=== PATIENT | male | born 1935 | race Caucasian/White ===

== ENCOUNTER 2018-10-18 05:54 | Day surgery (SDC) | payer OTHER ==
--- NOTE | 2018-10-11 13:59 | RAD REPORT ---
EXAM DESCRIPTION: RAD - Chest Pa And Lat (2 Views) - 10/11/2018 1:49 pm CLINICAL HISTORY: preop Chest pain. COMPARISON: Chest Pa And Lat (2 Views) dated 06/08/2016; CHEST PA AND LAT 2 VIEW dated 09/25/2013; CH EST PA AND LAT 2 VIEW dated 07/05/2003 FINDINGS: The lungs are clear. The left hemidiaphragm is mildly elevated. The heart is upper limit o f normal in size. No fracture seen. IMPRESSION: Stable chest since 06/08/2016.
[2018-10-11 14:54] LABS: Absolute Lymphocytes (CBC) 1.3 K/uL (0.7-4.9); Absolute Monocytes 0.8 K/uL (0.1-1.3); Absolute Neutrophil 4.4 K/uL (1.8-8.0); Eosinophils % 2.5 % (0-4.4); Hematocrit 39.1 % (39.6-49.0); Lymphocytes % 19.4 % (15.3-44.8); Monocytes % 12.2 % (3.3-12.3); RBC Red Blood Cell Count 4.53 M/uL (4.33-5.43)
[2018-10-11 15:04] LABS: Protime INR 1.39
[2018-10-11 15:19] LABS: BUN Blood Urea Nitrogen 11 mg/dL (7-18); Bicarbonate 28 mmol/L (21-32); Glucose Level 101 mg/dL (74-106); Potassium 4.2 mmol/L (3.5-5.1); Sodium Level 140 mmol/L (136-145)
--- NOTE | 2018-10-12 06:29 | EKG ---
Test Date: 2018-10-11 Test Time: 13:34:49 Window Framer: DEVON MEASUREMENT RESULTS: Intervals: Rate: 69 AL: 268 QRSD: 90 QT: 394 QTc: 422 A[place]on: P: 31 AL: 268 QRS: -25 T: 12 INTERPRETIVE STATEMENTS: Sinus rhythm with 1st degree AV block Minimal voltage criteria for LVH, may be normal variant Borderline ECG Compared to ECG 06/09/2016 08:25:19 Myocardial infarct finding no longer present Electronically Signed On 10-12-18 06:29:19 DTP OPERATOR by Abdirahman Santa
--- OUTSIDE RECORDS SUMMARY | 2018-10-18 05:56 | XMS REPORT ---
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
--- OUTSIDE RECORDS SUMMARY | 2018-10-18 05:56 | XMS REPORT ---
:1935 Author Organization eClinicalWorks Care Team Providers Name Role Phone Bennett Mota Provider Role Unavailable Allergies, Adverse Reactions, Alerts Substance Reaction Event Type N.K.D.A. 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 Active Problem Tear of right rotator cuff, M75.101 Active unspecified tear extent Assessment Subacromial bursitis of right M75.51 Active shoulder joint Assessment Pain, joint, shoulder, right M25.511 Active Assessment Tear of right rotator cuff, M75.101 Active unspecified tear extent Medications Medication Code Code Instructions Start End Status Dosage System Date Date Niacin [facility] [address]-55 500 MG Orally Active 1 tablet Once a day with food Iron [facility] [address]-95 65 MG Orally Active 1 tablet Once a day Vitamin C [facility] 10324671328 500 MG Orally Active as directed CoQ-10 [facility] 77535066382 100 MG Orally Active 1 capsule Once a day with a meal Vitamin B-12 [facility] 62909062350 500 MCG Orally Active 2 tablets Once a day Vitamin D-3 ND 44845663503 5000 UNIT Active 1 tablet Orally Once a day Xarelto [facility] 79924393382 20 MG Oral Active TAKE 1/2 TO 1 TABLET EVERY DAY Citracal Plus [facility] 92092823067 - Orally Active as directed Crestor [facility] 43026497926 10 MG Orally Jul 25, Active 1 tablet Once a day 2017 Results No Known Results Summary Purpose eClinicalWorks Submission
[2018-10-18] MEDS ORDERED: Ringers Lactate 1,000 ML IV ONE ×2 (06:07→08:37)
[2018-10-18] MEDS ORDERED: CEFAZOLIN 1GM (PREMIX IV) 1 GM/50 ML BAG ONE (06:08)
[2018-10-18] MEDS ORDERED: LIDOCAINE 1% MPF 5 ML VIAL ONE (06:21)
[2018-10-18] MEDS ORDERED: MIDAZOLAM HCL 2 MG/2 ML INJ ONE (07:05)
[2018-10-18] MEDS ORDERED: PROPOFOL 200 MG/20 ML VIAL IV ONE (07:05)
[2018-10-18] MEDS ORDERED: LIDOCAINE 2% MPF 5 ML VIAL ONE (07:05)
[2018-10-18] MEDS ORDERED: FENTANYL CITR 250 MCG/5 ML ONE (07:05)
[2018-10-18] MEDS ORDERED: ROCURONIUM 50 MG/5 ML VIAL IV ONE (07:06)
[2018-10-18] MEDS ORDERED: DEXAMETHASONE 4 MG/ML VIAL ONE (07:15)
[2018-10-18] MEDS ORDERED: ROPLVACAINE HCL 40 ML ONE (07:15)
[2018-10-18] MEDS ORDERED: EPINEPHRINE/PF 1 MG/ML AMP ONE (07:19)
[2018-10-18] MEDS ORDERED: EPHEDRINE SULF 50 MG/ML VIAL ONE (08:15)
[2018-10-18] MEDS ORDERED: KETOROLAC 30 MG/ML INJ ONE (09:59)
--- NOTE | 2018-10-18 10:13 | P.BOP ---
Preoperative diagnosis: right rotator cuff tear, bicipital tenosynovitis, impingement syndrome Postoperative diagnosis: same, SLAP tear Primary procedure: right shoulder arthroscopic rotator cuff repair Secondary procedure: right shoulder arthroscopic biceps tenotomy Other procedure(s): right shoulder arthroscopic subacromial decompression Contact Center Assistant: NONE,NONE Estimated blood loss: 10 cc Specimen: none Findings: see dictation Anesthesia: General Complications: None Implants: 2- 5.5 mm arthrex corkscrew, 2- 4.75 mm arthrex swivelock Fluids & blood products: per anesthesia Transferred to: Recovery Room Condition: Good
--- NOTE | 2018-10-18 10:38 | RAD REPORT ---
EXAM DESCRIPTION: RAD - Shoulder 1 View - 10/18/2018 10:30 am CLINICAL HISTORY: Postop examination right shoulder surgery or procedure COMPARISON: None. FINDINGS: Single AP projection of the right shoulder obtained labeled postop examination. The patien t's hand overlies the inferior aspect of the right shoulder joint limiting detail. There is no dislocation of the humeral head. No gross fracture deformity is identifiable. Acromial hu meral joint space is narrowed. Degenerative change seen along the undersurface of the acromion and mi nimally at the AC joint. No AC joint separation. IMPRESSION: No dislocation, fracture or acute right shoulder joint finding.
--- NOTE | 2018-10-18 22:25 | OP ---
Date of Procedure: 10/18/2018 Surgeon: Bennett Mota MD Preoperative Diagnoses: 1.Right shoulder rotator cuff tear. 2.Right shoulder bicipital tenosynovitis. 3.Right shoulder impingement syndrome. Postoperative Diagnoses: 1.Right shoulder rotator cuff tear. 2.Right shoulder bicipital tenosynovitis. 3.Right shoulder impingement syndrome. 4.Right shoulder superior labral anterior to posterior tear. Procedures Performed: 1.Right shoulder arthroscopic rotator cuff repair. 2.Right shoulder arthroscopic biceps tenotomy with superior labral anterior to posterior tear debrid ement. 3.Right shoulder arthroscopic subacromial decompression. Anesthesia: General endotracheal. Fluids: Per Anesthesia record. Estimated Blood Loss: 10 cc. Complications: None. Implants: 1.Two 5.5 mm Arthrex corkscrews. 2.Two 4.75 mm Arthrex SwiveLocks. Indication For Procedure: Nghia is an 83-year-old male who presented to my clinic with signs, sym ptoms and MRI findings consistent with a rotator cuff tear. I discussed with the patient at length r isks and benefits associated with operative and nonoperative treatment. He expressed understanding a nd elected to proceed with operative treatment. Description Of Procedure: After informed consent was obtained, the patient was identified in the pre operative holding area and the right upper extremity was marked. The patient underwent an interscale ne block performed by Anesthesia in the PACU. He was then transferred to the operating room, transfe rred to the operating table in a supine fashion and placed under general endotracheal anesthesia. He was then placed in a beach-chair position with his extremities well padded. The right upper extremi ty was then examined. The patient had full range of motion. No instability over the right shoulder joint. The right upper extremity was then prepped and draped in usual sterile fashion. A time-out w as initiated. The correct patient and procedure were confirmed and identified. The patient did rece zhane his preoperative prophylactic antibiotics. Via the posterior portal position, a spinal needle wa s introduced in the glenohumeral joint and then shoulder joint was injected with 30 cc of normal sali ne. A posterior portal was created and the arthroscope was brought in via the posterior portal posit ion. An anterior portal was created and a cannula was placed. A diagnostic arthroscopy was performe d. The patient was noted to have some mild chondromalacia changes over the glenoid surface which wer e debrided using the arthroscopic shaver. He has overall pristine cartilage of the humeral head. He is noted to have a type 2 SLAP tear with the superior labrum elevated off the glenoid. A biceps ten otomy was then performed using meniscal biter. Arthroscopic shaver was then used again to debride th e superior labrum. Anterior, inferior and posterior labrum were found to be intact and stable to pro be. There were no loose bodies within the axillary pouch. Subscapularis was found to be intact. Ev aluated the supraspinatus. He was noted to have a full-thickness tear anteriorly. A lateral portal was created. There was pass through of the obturator through the supraspinatus indicating full-thick ness tear. Arthroscopic shaver was then used to debride the footprint on the greater tuberosity of t he supraspinatus as well as the nonviable tissue at the tear site. The arthroscope was then brought on the bottom subacromial space and a subacromial bursectomy was performed. The tear was found on th e bursal side confirming the full-thickness tear pattern. The tear was debrided using the arthroscop ic shaver and it was overall large crescentic tear and it was reducible onto the footprint of the sup raspinatus on the greater tuberosity. Two 5.5 mm anchors were placed, 1 anteriorly and 1 posteriorly which were double loaded. The sutures were then passed through the rotator cuff in an [id number] osterior fashion and were tied in a horizontal mattress fashion for total 4 points of fixation. Late ral row fixation was then performed using two 4.75 mm SwiveLock anchors in a crisscross fashion. The re was good overall reduction of the supraspinatus onto the greater tuberosity. There was some frayi ng noted of the coracoacromial ligament and the undersurface of the acromion was debrided using a rad iofrequency ablator as well as an arthroscopic shaver and bur and an acromioplasty was performed to p erform a subacromial decompression. On undersurface of the acromion, any osteophytes were debrided u sing a bur and there was no significant impingement found after completion of the decompression. The arthroscopic instruments were then removed without complication and portal sites were then irrigated with normal saline and approximated using a 2-0 Vicryl and 3-0 Monocryl. Sterile dressings were chas lied. The patient was placed in a shoulder immobilizer, awakened, and transferred to PACU in stable condition. Postoperative Plan: He will be nonweightbearing. He will follow the large rotator cuff repair min col beginning at 6 weeks postoperatively. ASHLEE/DURAN Voice ID: [id number] Report ID: [id number]
== END 2018-10-18 12:12 | disposition home or self-care (01) ==
LOC: OR 05:54
PROVIDERS: ATTEND Orthopaedic Surgery Sports Medicine
PROC: 0RNJ4ZZ Release Right Shoulder Joint, Percutaneous Endoscopic Approach (ICD-10-PCS; 2018-10-18)
PROC: 0RBJ4ZZ Excision of Right Shoulder Joint, Percutaneous Endoscopic Approach (ICD-10-PCS; 2018-10-18)
PROC: 0LQ14ZZ Repair Right Shoulder Tendon, Percutaneous Endoscopic Approach (ICD-10-PCS; principal; 2018-10-18 07:30)
DX: M75.121 Complete rotator cuff tear or rupture of right shoulder, not specified as traumatic (principal); S43.431A Superior glenoid labrum lesion of right shoulder, initial encounter; M75.21 Bicipital tendinitis, right shoulder; M75.41 Impingement syndrome of right shoulder; M75.51 Bursitis of right shoulder; Z86.711 Personal history of pulmonary embolism; Z79.01 Long term (current) use of anticoagulants; Z87.891 Personal history of nicotine dependence; Z82.49 Family history of ischemic heart disease and other diseases of the circulatory system; Z80.9 Family history of malignant neoplasm, unspecified
CPT/HCPCS: 29822; 29826; 29827; 36415; 71046; 73020; 80048; 85025; 85610; 85730; 93005; J0171; J0690; J2250; J2704; J2795; J3010

== ENCOUNTER 2018-11-09 08:10 | Emergency (ER) | payer OTHER ==
--- OUTSIDE RECORDS SUMMARY | 2018-11-09 08:12 | XMS REPORT ---
[...] cuff, M75.101 Active unspecified tear extent Assessment Complete tear of right rotator cuff M75.121 Active Assessment Bicipital tendinitis of right M75.21 Active shoulder Assessment Pain, joint, shoulder, right M25.511 Active Assessment Subacromial bursitis of right M75.51 Active shoulder joint Medications Medication Code Code Instructions Start End Status Dosage System Date Date Vitamin C [facility] 51098818950 500 MG Orally Active as directed CoQ-10 [facility] 61957929968 100 MG Orally Active 1 capsule Once a day with a meal Vitamin B-12 [facility] 24808571988 500 MCG Orally Active 2 tablets Once a day Vitamin D-3 [facility] 48380502907 5000 UNIT Active 1 tablet Orally Once a day Citracal Plus [facility] 16621999003 - Orally Active as directed Xarelto [facility] 55034486876 20 MG Oral Active TAKE 1/2 TO 1 TABLET EVERY DAY Crestor [facility] 39290942386 10 MG Orally Jul 25, Active 1 tablet Once a day 2017 Niacin [facility] [address]-66 500 MG Orally Active 1 tablet Once a day with food Iron [facility] [address]-58 65 MG Orally Active 1 tablet Once a day Results No Known Results Summary Purpose eClinicalWorks Submission
--- OUTSIDE RECORDS SUMMARY | 2018-11-09 08:12 | XMS REPORT ---
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
--- OUTSIDE RECORDS SUMMARY | 2018-11-09 08:12 | XMS REPORT ---
:1935 Author Organization eClinicalWorks Care Team Providers Name Role Phone Bennett Mota Provider Role Unavailable Allergies No Known Allergies Problems Problem Type Condition Code Onset Dates Condition Status Problem Complete tear of right rotator cuff M75.121 Active Problem Tear of right rotator cuff, M75.101 Active unspecified tear extent Medications Medication Code System Code Instructions Start End Date Status Dosage Date [facility] 01618509971 7.5-325 MG Orally Oct 06, Oct 16, Active 1 tablet every 4-6 hrs 2017 2017 as needed Results No Known Results Summary Purpose eClinicalWorks Submission
--- OUTSIDE RECORDS SUMMARY | 2018-11-09 08:12 | XMS REPORT ---
[...] End Status Dosage System Date Date Niacin [facility] [address]-03 500 MG Orally Active 1 tablet Once a day with food Iron [facility] [address]-49 65 MG Orally Active 1 tablet Once a day Vitamin C [facility] 36673293432 500 MG Orally Active as directed CoQ-10 [facility] 07718344508 100 MG Orally Active 1 capsule Once a day with a meal Vitamin B-12 [facility] 57120103892 500 MCG Orally Active 2 tablets Once a day Vitamin D-3 [place] 48349215944 5000 UNIT Active 1 tablet Orally Once a day Xarelto [facility] 39819905380 20 MG Oral Active TAKE 1/2 TO 1 TABLET EVERY DAY Citracal Plus [facility] 23113015953 - Orally Active as directed Crestor [facility] 00474420203 10 MG Orally Jul 25, Active 1 tablet Once a day 2017 Results No Known Results Summary Purpose eClinicalWorks Submission
--- NOTE | 2018-11-09 09:06 | RAD REPORT ---
EXAM DESCRIPTION: US - Extremity Venous Uni Ltd - 11/09/2018 8:58 am CLINICAL HISTORY: Left leg pain and swelling COMPARISON: None. TECHNIQUE: Real-time sonographic evaluation of the left lower extremity deep venous system was perfo rmed. FINDINGS: Normal compressibility, flow augmentation, phasic flow and spontaneous flow are identified in the left lower extremity common femoral, superficial femoral, popliteal and posterior tibial vein s. No intraluminal filling defects seen. IMPRESSION: No DVT in the left lower extremity.
--- NOTE | 2018-11-09 09:16 | ER ---
Nurse's Notes [facility] Name: Nghia Potts Age: 83 yrs Sex: Male : 1935 Arrival Date: 11/09/2018 Time: 08:11 Bed 7 Private MD: Harrison Zarate B Diagnosis: Edema, unspecified-Lower extremity edema Presentation: 11/09 08:21 Presenting complaint: Patient states: swelling to left leg, pain behind left knee since iw rotator cuff surgery on Oct 18, had US done on Oct 23 and was negative, swelling has increased, also has hx of PE, currently on xarelto. Transition of care: patient was not received from another setting of care. Onset of symptoms was October 18, 2018. Risk Assessment: Do you want to hurt yourself or someone else? Patient reports no desire to harm self or others. Initial Sepsis Screen: Does the patient meet any 2 criteria? No. Patient's initial sepsis screen is negative. Does the patient have a suspected source of infection? No. Patient's initial sepsis screen is negative. Care prior to arrival: None. 08:21 Method Of Arrival: Ambulatory 08:21 Acuity: CHARLEY 3 iw Historical: - Allergies: 08:25 NKA; iw - Home Meds: 08:25 Crestor oral oral once daily [Active]; iw - PMHx: 08:25 DVT; PE; Hyperlipidemia; iw - PSHx: 08:25 right rotator cuff; hiatal hernia; iw - Immunization history:: Adult Immunizations up to date. - Social history:: Smoking status: Patient/guardian denies using tobacco. - Ebola Screening: : Patient negative for fever greater than or equal to 101.5 degrees Fahrenheit, and additional compatible Ebola Virus Disease symptoms Patient denies exposure to infectious person Patient denies travel to an Ebola-affected area in the 21 days before illness onset No symptoms or risks identified at this time. Screenin:26 Abuse screen: Denies threats or abuse. Denies injuries from another. Nutritional ca1 screening: No deficits noted. Tuberculosis screening: No symptoms or risk factors identified. Fall Risk None identified. Assessment: 08:26 General: Appears in no apparent distress. Behavior is calm, cooperative, appropriate ca1 for age. Pain: Complains of pain in posterior aspect of left knee Pain does not radiate. Pain currently is 4 out of 10 on a pain scale. Neuro: Level of Consciousness is awake, alert, obeys commands. Cardiovascular: Heart tones S1 S2 present Patient's skin is warm and dry. Respiratory: Airway is patent Trachea midline Respiratory effort is even, unlabored, Respiratory pattern is regular, symmetrical, Breath sounds are clear bilaterally. GI: Abdomen is flat, non-distended, Bowel sounds present X 4 quads. Abd is soft and non tender X 4 quads. : No signs and/or symptoms were reported regarding the genitourinary system. EENT: No signs and/or symptoms were reported regarding the EENT system. Derm: Skin is intact, Skin is pink, warm \T\ dry. Musculoskeletal: Circulation, motion, and sensation intact. has a sling on R shoulder. 09:10 Reassessment: Patient appears in no apparent distress at this time. Patient and/or ca1 family updated on plan of care and expected duration. Pain level reassessed. Patient is alert, oriented x 3, equal unlabored respirations, skin warm/dry/pink. 10:02 Reassessment: PT D/C HOME AMBULATORY WITH FAMILY, DX WITH PERIPHERAL EDEMA. bp Vital Signs: 08:22 BP 134 / 70; Pulse 89; Resp 18; Temp 97.8; Pulse Ox 98% on R/A; Weight 67.13 kg; Height iw 5 ft. 7 in. (170.18 cm); Pain 5/10; 09:10 BP 128 / 74; Pulse 88; Resp 18; Pulse Ox 98% on R/A; ca1 08:22 Body Mass Index 23.18 (67.13 kg, 170.18 cm) iw ED Course: 08:11 Patient arrived in ED. dl4 08:11 Harrison Zarate MD is Private Physician. dl4 08:13 Krystal Castro, LILI is Primary Nurse. ca1 08:20 Ruben Huggins PA is PHCP. jr8 08:20 Josiah Randle MD is Attending Physician. jr8 08:22 Arm band placed on. iw 08:23 Triage completed. iw 08:26 Patient has correct armband on for positive identification. Placed in gown. Bed in low ca1 position. Call light in reach. Side rails up X 1. Pulse ox on. NIBP on. Warm blanket given. 08:59 US Extremity Venous Unilateral Ltd In Process Unspecified. EDMS 09:14 Harrison Zarate MD is Referral Physician. jr8 09:20 No provider procedures requiring assistance completed. Patient did not have IV access ca1 during this emergency room visit. Administered Medications: No medications were administered Outcome: 09:15 Discharge ordered by . jr8 10:02 Discharged to home ambulatory, with family. bp 10:02 Condition: stable 10:02 Discharge instructions given to patient, family, Instructed on discharge instructions, follow up and referral plans. Demonstrated understanding of instructions, follow-up care. 10:04 Patient left the ED. bp Signatures: Dispatcher [employer] EDMS aCthy Lujan, RN RN iw Ruben Huggins PA PA jr8 Willy Steward RN RN Beka Ceballos dl4 Krystal Castro RN RN ca1 Corrections: (The following items were deleted from the chart) 08:26 08:22 BP 134 / 70; Pulse 89bpm; Resp 18bpm; Pulse Ox 98% RA; Temp 97.8F; ca1 iw : 09:10 No provider procedures requiring assistance completed. ca1 ca1 : 09:10 Patient did not have IV access during this emergency room visit. ca1 ca1
--- NOTE | 2018-11-09 09:17 | EDPHYS ---
Physician Documentation [facility] Name: Nghia Potts Age: 83 yrs Sex: Male : 1935 Arrival Date: 11/09/2018 Time: 08:11 Bed 7 Private MD: Harrison Zarate B ED Physician Josiah Randle HPI: 11/09 08:32 This 83 yrs old Male presents to ER via Ambulatory with complaints of Leg jr8 Swelling. 08:32 The complaints affect the left leg. Onset: The symptoms/episode began/occurred acutely, jr8 2 week(s) ago. Modifying factors: The symptoms are alleviated by nothing. the symptoms are aggravated by nothing. Associated signs and symptoms: The patient has no apparent associated signs or symptoms. Severity of symptoms: At their worst the symptoms were mild, in the emergency department the symptoms are unchanged. It is unknown whether or not the patient has had similar symptoms in the past. The patient has not recently seen a physician. Patient had rotator cuff surgery on the october. Noticed swelling to left leg shortly after surgery. Had US done on the october with negative results. 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 Stated that the swelling still persists without any improvement . Historical: - Allergies: 08:25 NKA; iw - Home Meds: 08:25 Crestor oral oral once daily [Active]; iw - PMHx: 08:25 DVT; PE; Hyperlipidemia; iw - PSHx: 08:25 right rotator cuff; hiatal hernia; iw - Immunization history:: Adult Immunizations up to date. - Social history:: Smoking status: Patient/guardian denies using tobacco. - Ebola Screening: : Patient negative for fever greater than or equal to 101.5 degrees Fahrenheit, and additional compatible Ebola Virus Disease symptoms Patient denies exposure to infectious person Patient denies travel to an Ebola-affected area in the 21 days before illness onset No symptoms or risks identified at this time. ROS: 08:32 Eyes: Negative for injury, pain, redness, and discharge, ENT: Negative for injury, jr8 pain, and discharge, Neck: Negative for injury, pain, and swelling, Cardiovascular: Negative for chest pain or palpitations Respiratory: Negative for shortness of breath, cough, wheezing, and pleuritic chest pain, Abdomen/GI: Negative for abdominal pain, nausea, vomiting, diarrhea, and constipation, Back: Negative for injury and pain, Skin: Negative for injury, rash, and discoloration, Neuro: Negative for headache, weakness, numbness, tingling, and seizure. 08:32 MS/extremity: Positive for swelling, of the left leg. Exam: 08:32 Eyes: Pupils equal round and reactive to light, extra-ocular motions intact. Lids and jr8 lashes normal. Conjunctiva and sclera are non-icteric and not injected. Cornea within normal limits. Periorbital areas with no swelling, redness, or edema. ENT: Nares patent. No nasal discharge, no septal abnormalities noted. Tympanic membranes are normal and external auditory canals are clear. Oropharynx with no redness, swelling, or masses, exudates, or evidence of obstruction, uvula midline. Mucous membranes moist. Neck: Trachea midline, no thyromegaly or masses palpated, and no cervical lymphadenopathy. Supple, full range of motion without nuchal rigidity, or vertebral point tenderness. No Meningismus. Respiratory: Lungs have equal breath sounds bilaterally, clear to auscultation and percussion. No rales, rhonchi or wheezes noted. No increased work of breathing, no retractions or nasal flaring. Abdomen/GI: Soft, non-tender, with normal bowel sounds. No distension or tympany. No guarding or rebound. No evidence of tenderness throughout. Back: No spinal tenderness. No costovertebral tenderness. Full range of motion. Skin: Warm, dry with normal turgor. Normal color with no rashes, no lesions, and no evidence of cellulitis. Neuro: Awake and alert, GCS 15, oriented to person, place, time, and situation. Cranial nerves II-XII grossly intact. Motor strength 5/5 in all extremities. Sensory grossly intact. Cerebellar exam normal. Normal gait. 08:32 Cardiovascular: Rate: normal, Rhythm: regular, Pulses: Pulses are 2+ in right radial artery, right dorsalis pedis artery, left radial artery and left dorsalis pedis artery. Heart sounds: normal, normal S1and S2, no S3 or S4, no murmur, no rub, no gallop, Edema: 2+ edema to level of left midcalf, left ankle and left foot, JVD: is not appreciated. 08:32 Musculoskeletal/extremity: Extremities: grossly normal except: noted in the left leg: Patient has mild swelling/edema to left lower leg from foot to knee. No tenderness to palpation. No erythema/cellulitis noted, ROM: no acute changes, intact in all extremities, Pulses: noted to be 2+ in the right radial artery, right dorsalis pedis artery, left radial artery and left dorsalis pedis artery, Perfusion: the patient is normally perfused throughout, pink, warm, noted to have brisk capillary refill, Perfusion: the extremity is normally perfused throughout, pink, warm, with brisk capillary refill, Sensation intact. Weight bearing: able to fully bear weight, without difficulty, DVT Exam: no tenderness, negative Homans' sign noted on exam, no appreciated bluish discoloration, no erythema, no increased warmth, swelling, that is moderate, of the left leg, Calves: are not equal in size: left is larger than right. Vital Signs: 08:22 BP 134 / 70; Pulse 89; Resp 18; Temp 97.8; Pulse Ox 98% on R/A; Weight 67.13 kg; Height iw 5 ft. 7 in. (170.18 cm); Pain 5/10; 09:10 BP 128 / 74; Pulse 88; Resp 18; Pulse Ox 98% on R/A; ca1 08:22 Body Mass Index 23.18 (67.13 kg, 170.18 cm) iw MDM: 08:20 Patient medically screened. jr8 08:32 Differential diagnosis: Cellulitis, arterial insufficiency, venous insufficiency, jr8 lymphedema, DVT, medication induced edema, bennett cyst. 09:13 Data reviewed: vital signs, nurses notes, radiologic studies, ultrasound, and as a jr8 result, I will discharge patient. Data interpreted: Pulse oximetry: on room air is 98 %. Interpretation: normal. Counseling: I had a detailed discussion with the patient and/or guardian regarding: the historical points, exam findings, and any diagnostic results supporting the discharge/admit diagnosis, radiology results, the need for outpatient follow up, a family practitioner, to return to the emergency department if symptoms worsen or persist or if there are any questions or concerns that arise at home. 09:13 ED course: Recommended compression stocking for left leg for now. Needs f/u with PCP jr8 for further determination of leg swelling. No emergent identifiable cause found. 11/09 08:32 Order name: US Extremity Venous Unilateral Ltd; Complete Time: 09:13 jr8 Administered Medications: No medications were administered Disposition: 11/09/18 09:15 Discharged to Home. Impression: Edema, unspecified - Lower extremity edema. - Condition is Stable. - Discharge Instructions: Peripheral Edema. - Medication Reconciliation Form, Thank You Letter, Antibiotic Education, Prescription Opioid Use form. - Follow up: Harrison Zarate MD; When: 1 - 2 days; Reason: Recheck today's complaints, Continuance of care, Re-evaluation by your physician. - Problem is new. - Symptoms are unchanged. Addendum: 11/16/2018 08:49 Co-signature as Attending Physician, Josiah Randle MD I agree with the assessment and k dr plan of care. Signatures: Dispatcher [employer] EDMS Josiah Randle MD MD kdr Cathy Lujan, LILI RN iw Ruben Huggins PA PA jr8 Willy Steward RN RN bp Corrections: (The following items were deleted from the chart) 11/09 10:04 09:15 11/09/2018 09:15 Discharged to Home. Impression: Edema, unspecified - Lower bp extremity edema. Condition is Stable. Forms are Medication Reconciliation Form, Thank You Letter, Antibiotic Education, Prescription Opioid Use. Follow up: Harrison Zarate; When: 1 - 2 days; Reason: Recheck today's complaints, Continuance of care, Re-evaluation by your physician. Problem is new. Symptoms are unchanged. jr8
== END 2018-11-09 10:04 | disposition home or self-care (01) ==
LOC: ER 08:10
DX: R60.0 Localized edema (principal); Z86.718 Personal history of other venous thrombosis and embolism; Z86.711 Personal history of pulmonary embolism; E78.5 Hyperlipidemia, unspecified
CPT/HCPCS: 93971; 99283

== ENCOUNTER 2020-08-13 06:00 | Inpatient (IN) | payer OTHER ==
--- NOTE | 2020-08-07 11:13 | RAD REPORT ---
EXAM DESCRIPTION: Bryan Ken (2 Views)08/07/2020 11:08 am CLINICAL HISTORY: Preop for surgery COMPARISON: 2018 FINDINGS: Left hemidiaphragm remains elevated. The lungs appear clear of acute infiltrate. The heart is mildly enlarged IMPRESSION: No acute abnormalities displayed
[2020-08-07 11:31] LABS: Potassium 4.2 mmol/L (3.5-5.1)
[2020-08-07 11:34] LABS: Absolute Lymphocytes (CBC) 1.1 K/uL (0.7-4.9); Basophils % 0.9 % (0-1.3); Hematocrit 44.6 % (39.6-49.0); Lymphocytes % 18.2 % (15.3-44.8); MPV 8.6 fL (7.6-11.3); RBC Red Blood Cell Count 4.76 M/uL (4.33-5.43)
[2020-08-07 11:37] LABS: Protime INR 1.2
--- OUTSIDE RECORDS SUMMARY | 2020-08-13 06:09 | XMS REPORT | Continuity of Care Document ---
:1935 Author Organization [facility] t Address [address] [place] [address] Care Team Providers Name Role Phone Unavailable Unavailable Unavailable Problems This patient has no known problems. Allergies, Adverse Reactions, Alerts This patient has no known allergies or adverse reactions. Medications Ordered Filled Start Stop Current Ordering Indication Dosage Frequency Signature Comments Components Source Medication Medication Date Date Medication? Clinician (SIG) Name Name Rishi Blackwell 0 Yes Bennett [address] [facility] Crestor Crestmd 2017-10 Yes Bennett [address] [facility] Niacin Niacin Yes Bennett [address] [facility] with food [facility] Vitamin Vitamin Yes Bennett [address] B-12 B-12 [facility] Vitamin D-3 Vitamin D-3 Yes Bennett [address] [facility] CoQ-10 CoQ-10 Yes Bennett [address] [facility] with a [facility] Citracal Citracal Yes Bennett as [facility] Plus Plus [facility] directed [facility] Vitamin C Vitamin C Yes Bennett as [facility] Xarelto Xarelto Yes Bennett TAKE 1/[address] [facility] TO 1 [facility] TABLET [facility] EVERY DAY l [facility] ent [facility] Plaquenil Plaquenil Yes Bennett not [facility] defined [facility] Iron Iron Yes Bennett [address] [facility] Methotrexat Methotrexat Yes Bennett not [facility] e e [facility]ota defined [facility] Hydroxychlo Hydroxychlo Yes Bennett not [facility] roquine roquine Mota defined [facility] - Sulfate Sulfate [facility] Rosuvastati Rosuvastati Yes Bennett not [facility] n Calcium n Calcium Mota defined Marilou k[facility] Folic Acid Folic Acid Yes Bennett not [facility] defined [facility] Procedures This patient has no known procedures. Encounters Start End Encounter Admission Attending Care Care Encounter Source Date/Time Date/Time Type Type Clinicians Facility Department ID 2020-08-07 2020-08-07 Outpatient [facility] [id number] [facility] 2020-06-27 2020-06-27 Outpatient [facility] [id number] [facility] 00:00:00 00:00:00 [facility] 2020-06-17 2020-06-17 [facility] [id number] [address] 14[facility] 14[facility] 2020-05-26 2020-05-26 [facility] [id number] 08[facility]21:00 08:21:00 [facility] 2020-05-06 2020-05-06 [facility] [id number] 08[facility]00[facility]00 08:00:00 [facility] 2020-03-25 2020-03-25 [facility] [id number] 10:00[facility]00 10:00:00 [facility] 2020-03-20 2020-03-20 [facility] [id number] 08:00[facility]00 08:00:00 [facility] 2020-03-11 2020-03-11 [facility] [id number] 08:00:00 08:00:00 [facility] 2020-02-14 2020-02-14 [facility] [id number] 08:30:00 08:30:00 [facility] 2019-12-03 2019-12-03 [facility] [id number] 08:00:00 08:00:00 [facility] 2019-02-26 2019-02-26 [facility] [id number] 08:00[facility]00 08:00:00 [facility] 2019-01-15 2019-01-15 [facility] [id number] 08:00:00 08:00:00 [facility] 2018-12-04 2018-12-04 [facility] [id number] 09:30:00 09:30:00 [facility] 2018-11-08 2018-11-08 [facility] [id number] 11:13:00 11:13:00 [facility] 2018-11-07 2018-11-07 [facility] [id number] 13:30:00 13:30:00 [facility] 2018-10-23 2018-10-23 [facility] [id number] 14:00:00 14:00:00 [facility] 2018-10-23 2018-10-23 [facility] [id number] 09:00:00 09:00:00 [facility] 2018-10-16 2018-10-16 [facility] [id number] 12:03:00 12:03:00 [facility] 2018-10-16 2018-10-16 [facility] [id number] 09:02:00 09:02:00 [facility] 2018-10-06 2018-10-06 [facility] [id number] 09:00:00 09:00:00 [facility] 2018-10-02 2018-10-02 [facility] [id number] 11:00:00 11:00:00 [facility] 2018-07-26 2018-07-26 [facility] [id number] 09:05:00 09:05:00 [facility] 2018-07-25 2018-07-25 [facility] [id number] 08:30:00 08:30:00 [facility] Results This patient has no known results.
--- OUTSIDE RECORDS SUMMARY | 2020-08-13 06:09 | XMS REPORT ---
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 Problem Primary osteoarthritis of left knee M17.12 Active Assessment Primary osteoarthritis of left knee M17.12 Active Medications Medication Code Code Instructions Start End Status Dosage System Date Date CoQ-10 [facility] 85746539760 100 MG Orally Active 1 caps ule Once a day with a meal Niacin [facility] [address]-43 500 MG Orally Active 1 ta blet Once a day with food Iron [facility] [address]-38 65 MG Orally Active 1 tab let Once a day Citracal Plus [facility] 21675045286 - Orally Active as directed Xarelto [facility] 57669382599 20 MG Oral Active TAKE 1/2 TO 1 TABLET EVERY DAY Rosuvastatin Calcium [facility] [address]-23 Activ e not defined Vitamin B-12 [facility] 44961317205 500 MCG Orally Active 2 tablets Once a day Vitamin D-3 [facility] 02385302138 5000 UNIT Active 1 tabl et Orally Once a day Vitamin C [facility] 41405198753 500 MG Orally Active as directed Hydroxychloroquine [facility] [address]-91 Active not Sulfate defined Plaquenil [facility] [address]-02 Active not defined Valium [facility] 66376718051 5 MG Orally 30 Sept Active 1 TAB LET MIN PRIOR TO 2019 Methotrexate [facility] [address]-08 Active not defined Folic Acid [facility] [address]-61 Active not defined Crestor [facility] 69264319436 10 MG Orally Jul 25, Active 1 table t Once a day 2017 Results No Known Results Summary Purpose [employer] Submission
--- OUTSIDE RECORDS SUMMARY | 2020-08-13 06:09 | XMS REPORT ---
:1935 Author Organization [facility] Address [address] [place] [address] Care Team Providers Name Role Phone Bennett Mota Unavailable [phone] PROBLEMS Type Condition ICD9-CM [id number] Onset Condition SNOMED Code Notes Code Code Dates Status Problem Tear of right M75.101 Active 386011648 rotator cuff, unspecified tear extent Problem Primary M17.12 Active 093230856431548 osteoarthritis of left knee Problem Complete tear of M75.121 Active 950168283 right rotator cuff ALLERGIES No Known Allergies ENCOUNTERS from 1935 to 2020-08-11 Encounter Location Date Provider Diagnosis [facility] [address] Jul, Bennett starks osteoarthritis [facility] 1 [place] of left knee M17.12 and [facility], [place] Pain, joint, kn ee, left [address] M25.562 IMMUNIZATIONS Vaccine Route Administration Date Status Visco-3 Unknown March 25, 2020 Administered Visco-3 Unknown March 20, 2020 Administered Visco-3 Unknown March 11, 2020 Administered Bupivicaine [place] Unknown March 11, 2020 Administered Bupivicaine [place] Unknown Dec 03, 2019 Administered Betamethasone Sodium Phosphate Unknown Jul 25, 2018 A dministered LIDOCAINE HCL 10MG/ML Unknown Jul 25, 2018 Administer ed Kenalog (Triamcinolone) Unknown March 11, 2020 Administ ered Kenalog (Triamcinolone) Unknown Dec 03, 2019 Administ ered SOCIAL HISTORY Tobacco Use: Social History Observation Description Date Details (start date - stop date) Never Smoker Sex Assigned At : Social History Observation Description Sex Assigned At Unknown Alcohol Screen Question Answer Notes Did you have a drink containing alcohol in the past year? No Points 0 Interpretation Negative Tobacco Use/Smoking Question Answer Notes Are you a never smoker Additional Findings: Tobacco Non-User Current non-smoker REASON FOR REFERRAL No Information VITAL SIGNS Height 67 in Jul, Weight 161 lbs Jul, Temperature 97.5 degrees Fahrenheit Jul, BMI 25.21 kg/m2 Jul, Blood pressure systolic 126 mm Hg Jul, Blood pressure diastolic 74 mm Hg Jul, MEDICATIONS Medication SIG (Take, Route, Start Date End Date Status Frequency, Duration) Vitamin C 500 MG as directed Orally Activ e Hydroxychloroquine Sulfate A ctive Methotrexate Active Xarelto 20 MG TAKE 1/2 TO 1 TABLET Active EVERY DAY Oral for 90 CoQ-10 100 MG 1 capsule with a meal Activ e Orally Once a day for 30 day(s) [place] 7.5-325 MG 1 tablet as needed Orally Jul,Aug, 0 Active every 6 hrs for 30 days Iron 65 MG 1 tablet Orally Once a Activ e day for 30 day(s) Crestor 10 MG 1 tablet Orally Once a Jul, Acti ve day for 30 day(s) Vitamin D-3 5000 UNIT 1 tablet Orally Once a Active day for 30 day(s) Citracal Plus - as directed Orally Active Vitamin B-12 500 MCG 2 tablets Orally Once a Active day for 30 day(s) Niacin 500 MG 1 tablet with food Orally A ctive Once a day for 30 day(s) Folic Acid Active Xarelto 10 MG 1 tablet Orally Once a Jul, Acti ve day for 11 days PROCEDURES No Information RESULTS No Results REASON FOR VISIT f/u left knee pain- discuss TKA set for 08/13/2020 MEDICAL (GENERAL) HISTORY Type Description Date Medical History taking blood thinners Medical History high cholesterol Medical History History DVT Medical History History Hital hernia Medical History History embolitis Surgical History hernia-no metal Surgical History Right RCR 10/18/2018 Hospitalization History ICU-leg swelling, DVT 2019 Goals Section No Information Health Concerns No Information MEDICAL EQUIPMENT No Information MENTAL STATUS No Information FUNCTIONAL STATUS No Information ASSESSMENTS Encounter Date Diagnosis Notes Jul, Pain, joint, knee, left (ICD-10 - M25.56 2) Jul, Primary osteoarthritis of left knee (ICD -10 - M17.12) PLAN OF TREATMENT Medication Medication Name Sig Start Date Stop Date Xarelto 10 MG 1 tablet Orally Once a day for 11 days Jul, 2 020 [place] 7.5-325 MG 1 tablet as needed Orally every 6 hrs for 26 Oc 2019Aug, 30 days Treatment Notes Assessment Notes Clinical Notes Primary osteoarthritis of left knee -patient has failed cons ervative treatment measures-given continued pain and difficulty with ADLs, recommend left TKA-Risks and benefits associated with the procedure were discussed with the patient and his family at length, and he expressed understanding and elected to proceed with operative treatment.-We will proceed with the left total knee on 08/13/2020. Next Appt Details 2 Weeks after surgery Reason: Provider Name:Bennett Mota 2020-08-28 0 9:00:00 AM, [address], [place], [address], Insurance Providers Payer Name Payer Payer Insured Patient Coverage Coverage End Address Phone Name Relationship to Start Date Lenard e Insured [employer] [phone] Vanessa Rojas self MEDICARE O [id number] [facility] [id number]
--- OUTSIDE RECORDS SUMMARY | 2020-08-13 06:09 | XMS REPORT ---
[...] osteoarthritis of left knee M17.12 Active Medications No Known Medications Results No Known Results Summary Purpose [employer]ClinicalWorks Submission
--- OUTSIDE RECORDS SUMMARY | 2020-08-13 06:09 | XMS REPORT ---
:1935 Author Organization [facility] Address [address] [place] [address] Care Team Providers Name Role Phone Bennett Mota Unavailable [phone] PROBLEMS Type Condition ICD9-CM [id number] Onset Condition SNOMED Code Notes Code Code Dates Status Problem Tear of right M75.101 Active 979298132 rotator cuff, unspecified tear extent Problem Primary M17.12 Active 412902159323743 osteoarthritis of left knee Problem Complete tear of M75.121 Active 946324515 right rotator cuff ALLERGIES No Information ENCOUNTERS from 1935 to 2020-07-09 Encounter Location Date Provider Diagnosis [facility] [address] [facility] [address] Jun, [place] [address] IMMUNIZATIONS No Information SOCIAL HISTORY Sex Assigned At : Social History Observation Description Sex Assigned At Unknown REASON FOR REFERRAL No Information VITAL SIGNS No information MEDICATIONS No Information PROCEDURES No Information RESULTS No Results REASON FOR VISIT clearances MEDICAL (GENERAL) HISTORY Type Description Date Medical [...] No Information FUNCTIONAL STATUS No Information ASSESSMENTS No Information PLAN OF TREATMENT No Information
[2020-08-13] MEDS ORDERED: Ringers Lactate 1,000 ML IV ONE ×2 (06:26→07:12)
[2020-08-13] MEDS ORDERED: propofoL 200 MG/20 ML VIAL IV ONE ×5 (06:38→10:14)
[2020-08-13] MEDS ORDERED: FENTANYL CITR 100 MCG/2 ML ONE (06:38)
[2020-08-13] MEDS ORDERED: LIDOCAINE 2% MPF 5 ML VIAL ONE ×2 (06:38→06:46)
[2020-08-13] MEDS ORDERED: KETOROLAC 30 MG/ML INJ ONE (06:38)
[2020-08-13] MEDS ORDERED: MIDAZOLAM HCL 2 MG/2 ML INJ ONE (06:38)
[2020-08-13] MEDS ORDERED: ROCURONIUM 50 MG/5 ML VIAL IV ONE (06:39)
[2020-08-13] MEDS ORDERED: KETAMINE HCL 500 MG/5 ML VIAL ONE (06:39)
[2020-08-13] MEDS ORDERED: ONDANSETRON 4 MG/2 ML VIAL ONE (06:39)
[2020-08-13] MEDS ORDERED: dexAMETHasone 4 MG/ML VIAL ONE (06:46)
[2020-08-13] MEDS ORDERED: NS 0.9% VIAL 20 ML ONE (06:46)
[2020-08-13] MEDS ORDERED: BUPIVACAINE 0.25% PF 10 ML VIAL ONE (06:46)
[2020-08-13] MEDS ORDERED: BUPIVACAINE 0.25% PF 30 ML VIAL ONE (07:12)
[2020-08-13] MEDS: CEFAZOLIN/SWI 1gm 1 GM/10 ML SYR ONE ×2 (07:24→07:44)
[2020-08-13] MEDS ORDERED: BUPIVACA 0.25%/EPI 0.0005% MDV 50 ML VIAL ONE (07:31)
[2020-08-13] MEDS ORDERED: TRANEXAMIC ACID 1,000 MG in NA CHLORIDE 0.9% 50 ML IV SCH (08:00)
[2020-08-13] MEDS ORDERED: HYDROMORPHONE HCL 1 MG/ML INJ ONE (08:38)
[2020-08-13] MEDS ORDERED: ESMOLOL HCL 10 ML IV ONE (10:25)
--- NOTE | 2020-08-13 10:36 | P.BOP ---
Preoperative diagnosis: left knee osteoarthritis Postoperative diagnosis: same Primary procedure: left total knee arthroplasty Secondary procedure: none Rn First Assistant: NONE,NONE Estimated blood loss: 20 cc Specimen: left knee bone remnants Findings: see dictation Anesthesia: General Complications: None Implants: Biomet Ashley Persona 11 STD CR femur, G tibia, 35 patella 10 mm CR poly Fluids & blood products: per anesthesia record; TT: 90 mins @ 300 mmHg Transferred to: Recovery Room Condition: Good
[2020-08-13] MEDS ORDERED: DOCUSATE NA 100 MG CAP PO PRN (10:39)
[2020-08-13] MEDS ORDERED: ONDANSETRON 4 MG/2 ML VIAL IV PRN (10:39)
[2020-08-13] MEDS ORDERED: MORPHINE 2 MG/ML SYR IV PRN (10:39)
[2020-08-13 11:29] LABS: Hematocrit 44.5 % (39.6-49.0)
[2020-08-13 11:48] VITALS: BMI 25.4
--- NOTE | 2020-08-13 12:11 | RAD REPORT ---
EXAM DESCRIPTION: RAD - Knee Left 2 View - 08/13/2020 11:12 am CLINICAL HISTORY: Post Op COMPARISON: No comparisons FINDINGS: A left total knee arthroplasty has been performed. Air is present in the joint with skin s taples noted. No unexpected postoperative finding.
--- NOTE | 2020-08-13 12:57 | P.CNS ---
Date of Consult: 08/13/20 Reason for consult: Medical management HPI: 84yo male, PMH: Prior DVT/PE, RA, HLD, who is now s/p left total knee arthroplasty for left knee osteoarthritis by Dr. Mota. I am consulted for medical management in the postoperative period. The patient reports he has been in his usual state of health, no recent illness. He reports feeling well after surgery, currently without complaints. Patient reports his last PE diagnosed 3 years ago common occurred during perioperative period when he was holding his Coumadin. He denies any cardiac history. He denies any fevers/chills, no nausea/vomiting, no abdominal pain, no chest pain, no shortness of breath, no recent rashes or lesions, no change in urinary/bowel habits recently. 10 point ROS otherwise negative. Social Hx: former smoker, quit > 30yrs ago occasional alcohol drink lives at home with Family Hx: Mother-cancer Father-heart disease (CHF, [place]) Brothers - 1 with HTN, 1 with CHF, 1 with dementia, 1 with 2 MIs Medical Hx: h/o DVT, PE, currently on Xarelto Rheumatoid arthritis Hyperlipidemia Surgical Hx: Left cataract repair Right rotator cuff repair Hiatal hernia repair Inguinal hernia repair Left knee replacement Medication list reviewed - in chart. Lab work from 08/07 reviewed Physical exam Gen: NAD, AAOx3 HEENT: normal conjunctiva, sclera anicteric CV: RRR, no m/r/g Pulm: CTAB, no w/r/r Abd: soft, NTND Ext: LLE: surgical dressing in place, L toes warm,well-perfused, wiggles toes. RLE: SCD in place, no edema A/P L knee osteoarthritis now s/o L TKA (08/13/20) Prior DVT/PE, currently on Xarelto Rheumatoid arthritis HLD doing well postoperatively, pain control per ortho encourage incentive spirometry pt with prior PE while off coumadin for hernia repair, will restart Xarelto tomorrow per ortho no recent RA flare, seems stable, continue home medications continue home statin VTE prophylaxis: SCDs, restart xarelto in AM Code: Full Dispo: plans to go home with home health/PT on discharge
[2020-08-13] MEDS: HYDROCODONE/APAP 7.5/325 MG TAB PO PRN (16:59)
[2020-08-13] MEDS: CEFAZOLIN/SWI 1gm 1 GM/10 ML SYR IV SCH (16:59)
[2020-08-13] MEDS ORDERED: CEFAZOLIN/NS 1gm 1 GM/50 ML BAG IVPB SCH (17:00)
--- NOTE | 2020-08-13 21:56 | P.OP ---
Preoperative diagnosis: left knee osteoarthritis Postoperative diagnosis: same Primary procedure: left total knee arthroplasty Secondary procedure: none Anesthesia: general LMA Estimated blood loss: 20 cc Specimen: left knee bone remnants Findings: see dictation Operative Technique: Indication For Procedure: Mirella is an 84-year-old male presented to my clinic with signs, symptoms and x-ray findings consistent with a severe left knee osteoarthritis. I discussed with the patient at length risks and benefits associated with operative and nonoperative treatment. He had failed conservative treatment measures including corticosteroid and viscosupplementation injections. He expressed understanding and elected to proceed with operative treatment. Description Of Procedure: After informed consent was obtained, the patient was identified in the preoperative holding area. The left lower extremity was marked. The patient was then taken to the PACU where he underwent a left lower extremity adductor canal block performed by Anesthesia. He was then taken to the operating room, transferred to the operating table in supine fashion, and p laced under general anesthesia. His left lower extremity was then prepped anddraped in usual sterile fashion. A time-out was initiated. The correct patient and procedure were confirmed and identified. The patient did receive his preoperative prophylactic antibiotics. The left lower extremity was then exsanguinated and tourniquet was inflated to 300 mmHg. Approximately 15 cm longitudinal incision was made centered over the anterior aspect of the right knee. Dissection was then taken to the extensor mechanism and a medial parapatellar arthrotomy was performed. The patella was everted and dislocated laterally and the knee was flexed in the fat pad. Medial lateral meniscus and ACL were all excised exposing the distal femur. Excess hypertrophic synovium was also excised within the suprapatellar pouch. The patient had MRIs of his right knee and cutting block was then placed over the distal femur and pins were then placed. The distal femoral cutting block was then placed over the pins. Knee joint was then used to ensure proper depth cut and the distal femur was then cut. The chamfer cutting guide was then placed over the distal end of the femur. Anterior, posterior cuts as well as anterior and posterior chamfer cuts were then made again confirming proper depth of the cut using an Jamarcus wing. Excess bone remnants were then sent to Pathology for further evaluation. Next, attention was taken to the proximal tibia. A tibial jig and tibial cutting block was then placed on proximal aspect of the right tibia and locked into position. Pins were then placed and alignment guide was then used to confirm proper alignment of the cut and then coronal and sagittal planes. Once this was confirmed, the cutting jig was placed over the pins and the proximal tibia was cut. Sizing trays were then selected and size 10 mm spacer was used and there was good overall balance in flexion and extension. Next, the trial implants were then placed using the size 11 standard CR femur and a size G tibia with a 10 mm poly. There was overall good range of motion and good stability Trial implants were then removed. The wound was then irrigated thoroughly with normal saline and the knee was then injected with 30 cc of 0.5% Marcaine with epinephrine both in the posterior capsule and mediallateral gutters as well as quadriceps tendon and periosteum. The tibia was then punched. The femur was drilled. The cement was then prepared on the back table. Cement was then placed first on the tibial surface followed by size G tibia. Excess cement was removed with [place] elevators. Size 11 standard CR femur was then placed on the distal femur after cement was placed on the distal femur. Excess cement was then removed and a size 10 mm trial poly was then placed. The knee was held in extension as the cement hardened. Undersurface ofthe patella was prepared debriding osteophytes using rongeurs as well as osteophytes had been debrided off the proximal tibia with rongeurs and osteotomes to aid with the medial tightness. Cement was placed on the undersurface of the patella after it was cut and a size 35 patella was placed. Once the cement was hardened, the knee was ranged, there was good overall stability both in flexion, extension and as well as stability with varus and valgus stresses. Trial poly was then removed and a size 10 mm CR poly was then placed and locked into position. The knee was then ranged again. There was good overall range of motion both for flexion and extension with good stability. The wound was then irrigated again thoroughly with normal saline using pulse lavage. Tourniquet was let down. Hemostasis was achieved using Bovie electrocautery. Extensor mechanism was then approximated using a #1 Vicryl bothin interrupted and running fashion. The fascia was then approximated using 0 Vicryl. Subcutaneous tissue was approximated with a 2-0 Vicryl. Skin was approximated using libby. Sterile dressings were applied. The patient was awakened and transferred back in stable condition. Postoperative Plan: Physical Therapy will be consulted to aid with mobilization and we will plan on keeping him for 2 midnights. Complications: None Implants: Biomet Ashley Persona 11 STD CR femur, G tibia, 35 patella, 10 mm CR poly Fluids & blood products: per anesthesia record; 90 mins @ 300 mmHg Transferred to: Recovery Room Condition: Good
[2020-08-14] MEDS: CEFAZOLIN/SWI 1gm 1 GM/10 ML SYR IV SCH ×2 (00:28→08:11)
[2020-08-14] MEDS: HYDROCODONE/APAP 7.5/325 MG TAB PO PRN ×3 (02:07→20:08)
[2020-08-14 05:11] LABS: Absolute Lymphocytes (CBC) 0.8 K/uL (0.7-4.9); Basophils % 0.2 % (0-1.3); Hematocrit 39.4 % (39.6-49.0); Lymphocytes % 6.4 % (15.3-44.8); MPV 9.1 fL (7.6-11.3); RBC Red Blood Cell Count 4.19 M/uL (4.33-5.43)
[2020-08-14 05:17] LABS: BUN Blood Urea Nitrogen 14 mg/dL (7-18); Bicarbonate 28 mmol/L (21-32); Glucose Level 121 mg/dL (74-106); Potassium 4.2 mmol/L (3.5-5.1); Sodium Level 140 mmol/L (136-145)
[2020-08-14] MEDS: FOLIC ACID 1 MG TABLET PO SCH (08:11)
[2020-08-14] MEDS: RIVAROXABAN 10 MG TABLET PO SCH (08:11)
[2020-08-14] MEDS: TRAMADOL HCL 50 MG TAB PO PRN (08:12)
[2020-08-14] MEDS ORDERED: HYDROXYCHLOROQUINE 200MG TAB PO SCH ×2 (09:00→21:00)
--- NOTE | 2020-08-14 11:59 | P.PN ---
Subjective Date of Service: 08/14/20 Subjective: Other (doing well, reports minimal to no pain, no nausea/vomiting, no SOB/chest pain) Review of Systems 10-point ROS is otherwise unremarkable Physical Examination - Vital Signs Temperature: 97 F Blood Pressure: 145/68 Pulse: 66 Respirations: 16 Pulse Ox (%): 95 - Physical Exam General: Alert, In no apparent distress, Oriented x3 HEENT: Mucous membr. moist/pink, Sclerae nonicteric Respiratory: Clear to auscultation bilaterally, Normal air movement Cardiovascular: No edema, Regular rate/rhythm Gastrointestinal: Soft and benign, Non-distended, No tenderness Integumentary: Other (LLE with dressing in place, no evidence of swelling / bleeding. L toes warm, well perfused) Neurological: Normal speech, Sensation intact (of L toes), Normal affect - Studies Laboratory Data (last 24 hrs) 08/14/20 04:37: Sodium 140, Potassium 4.2, BUN 14, Creatinine 0.80, Glucose 121 H 08/14/20 04:37: WBC 12.1 H D, Hgb 13.4 L, Hct 39.4 L, Plt Count 176 Assessment & Plan Physician Review Additional Text: L knee osteoarthritis now s/p L TKA (08/13/20) Prior DVT/PE, currently on Xarelto Rheumatoid arthritis HLD with mild leukocytosis today -likely reactive, afebrile, vitals within normal limits & stable. Hgb stable doing well postoperatively, with minimal pain; continue pain control per ortho encourage incentive spirometry, continue colace pt with prior PE while off coumadin for hernia repair, restart Xarelto today no recent RA flare, seems stable, continue home medications continue home statin VTE prophylaxis: xarelto restarted today Code: Full Dispo: plans to go home with home health/PT on discharge Time Spent Managing Pts Care (In Minutes): 35
--- NOTE | 2020-08-14 13:03 | P.PN ---
Subjective Date of Service: 08/14/20 Subjective: Ambulating, Improving, Working w/ PT pain controllled Physical Examination - Vital Signs Temperature: 97.2 F Blood Pressure: 126/64 Pulse: 74 Respirations: 17 Pulse Ox (%): 96 - Physical Exam General: Alert, In no apparent distress Musculoskeletal: Other (LLE: dressing c/d/i; +EHL/FHL/GSC/TA; sensation grossly intact distally) - Studies Laboratory Data (last 24 hrs) 08/14/20 04:37: Sodium 140, Potassium 4.2, BUN 14, Creatinine 0.80, Glucose 121 H 08/14/20 04:37: WBC 12.1 H D, Hgb 13.4 L, Hct 39.4 L, Plt Count 176 Assessment And Plan - Plan Nghia is an 84 yo male s/p left TKA POD#1 -continue to mobilize with PT; WBAT LLE -Xarelto for DVT prophylaxis -likely d/c home tomorrow after AM PT
[2020-08-15] MEDS: HYDROCODONE/APAP 7.5/325 MG TAB PO PRN ×2 (01:45→05:48)
[2020-08-15 05:32] VITALS: BP 131/64; TEMP 98
--- NOTE | 2020-08-15 08:22 | P.PN ---
Subjective Date of Service: 08/15/20 Chief Complaint: s/p L TKA Subjective: Improving (Feeling well, passing flatus, tolerating diet, ambulated with physical therapy yesterday Pain is tolerable/managed with medication) Physical Examination - Vital Signs Temperature: 98.0 F Blood Pressure: 131/64 Pulse: 89 Respirations: 18 Pulse Ox (%): 96 - Physical Exam General: Alert, In no apparent distress HEENT: Sclerae nonicteric Respiratory: Clear to auscultation bilaterally, Normal air movement Cardiovascular: No edema, Regular rate/rhythm Gastrointestinal: Soft and benign, Non-distended, No tenderness Musculoskeletal: Other (Dressing c/d/i) Neurological: Other (distal L foot sensation intact) Assessment & Plan Physician Review Additional Text: L knee osteoarthritis now s/p L TKA (08/13/20) Prior DVT/PE, currently on Xarelto Rheumatoid arthritis HLD doing well postoperatively, with minimal pain; continue pain control per ortho continue incentive spirometry, continue colace pt with prior PE while off coumadin for hernia repair, resumed xarelto yesterday continue home medications likely to be discharged today after PT per Ortho VTE prophylaxis: xarelto restarted today Code: Full Dispo: home with home health/PT on discharge likely today Time Spent Managing Pts Care (In Minutes): 25
[2020-08-15] MEDS ORDERED: NIACIN 500 MG SR TAB PO SCH (09:00)
[2020-08-15] MEDS ORDERED: ROSUVASTATIN 10 MG TAB PO SCH (09:00)
[2020-08-15] MEDS ORDERED: FERROUS SULFATE 325 MG TAB PO SCH (09:00)
[2020-08-15] MEDS: FOLIC ACID 1 MG TABLET PO SCH (09:02)
[2020-08-15] MEDS: RIVAROXABAN 10 MG TABLET PO SCH (09:02)
[2020-08-15] MEDS: TRAMADOL HCL 50 MG TAB PO PRN (09:07)
--- NOTE | 2020-08-15 10:13 | P.DS ---
Admission Date: 08/13/20 Discharge Date: 08/15/20 Disposition: DC HOME/HOME HEALTH CARE Discharge Condition: GOOD Reason for Admission: s/p L TKA Consultations: Hospitalist service Procedures: left total knee arthroplasty on 08/13/20 Brief History of Present Illness: Nghia is an 84 yo male s/p left total knee arthroplasty on 08/13/20 without complication. He was admitted to the floor in stable condition. Hospital Course: Nghia did well postoperatively and ambulated on the afternoon of surgery. Hospitalist service was consulted to aid with medical management. Patient was started on Xarelto on POD#1 for DVT prophylaxis. Physical therapy was consulted to aid with mobilization and he was discharged on 08/15/20 in stable condition with his pain controlled. Vital Signs/Physical Exam: Temp Pulse Resp BP Pulse Ox 98.0 F 89 18 131/64 95 08/15/20 08:28 08/15/20 08:28 08/15/20 09:07 08/15/20 08:28 08/15/20 09:07 Laboratory Data at Discharge: WBC 12.1 K/uL (4.3-10.9) H D 08/14/20 04:37 Hgb 13.4 g/dL (13.6-17.9) L 08/14/20 04:37 Hct 39.4 % (39.6-49.0) L 08/14/20 04:37 Plt Count 176 K/uL (152-406) 08/14/20 04:37 PT 14.1 SECONDS (9.5-12.5) H 08/07/20 10:57 INR 1.20 08/07/20 10:57 APTT 37.4 SECONDS (24.3-36.9) H 08/07/20 10:57 Sodium 140 mmol/L (136-145) 08/14/20 04:37 Potassium 4.2 mmol/L (3.5-5.1) 08/14/20 04:37 BUN 14 mg/dL (7-18) 08/14/20 04:37 Creatinine 0.80 mg/dL (0.55-1.3) 08/14/20 04:37 Glucose 121 mg/dL (74-106) H 08/14/20 04:37 Home Medications: Rosuvastatin Calcium [Crestor] 10 mg PO SEECOM 06/08/16 Ascorbic Acid [Vitamin C*] 500 mg PO DAILY 08/18/16 Cyanocobalamin [Vitamin B-12*] 1,000 mcg PO M,W,F 08/18/16 Iron 65 mg PO M,W,F 08/18/16 Niacin [Niaspan] 500 mg PO M,W,F 08/18/16 Rivaroxaban [Xarelto*] 10 mg PO DAILY 08/18/16 Ubidecarenone/Vit E Acet [Co Q-10 100 mg Softgel] 1 each PO DAILY 10/11/18 Ca Citrate/Mgox/Vit D3/B6/Min [Citracal Plus Tablet] 1 each PO EVERY 7TH DAY 08/07/20 Cholecalciferol (Vitamin D3) [Vitamin D3] 5,000 unit PO M,W,F 08/07/20 Folic Acid 1 mg PO DAILY 08/07/20 Hydroxychloroquine [Plaquenil*] 200 mg PO DAILY 08/07/20 Methotrexate [Methotrexate*] 8 tab PO EVERY 7TH DAY 08/07/20 Synbiotic 365 1 tab PO DAILY 08/07/20 Hydrocodone 7.5/APAP 325 [[place] 7.5/325 mg*] 1 tab PO Q4H PRN tab 08/15/20 Patient Discharge Instructions: Keep dressing clean, dry and intact. HHPT to aid with mobilization, WBAT LLE. Followup with Dr. Mota in 2 weeks for staple removal. Diet: Regular Activity: Weight bearing as tolerated Followup: Harrison Zarate MD [Primary Care Provider] - Bennett Mota MD [ACTIVE - CAN ADMIT] - 1-2 Weeks
[2020-08-15 10:47] VITALS: O2SAT 95
[2020-08-19] MEDS ORDERED: METHOTREXATE 2.5 MG TAB PO SCH (17:00)
== END 2020-08-15 12:05 | disposition home health service (06) | DRG 470 ==
LOC: OR 06:00 → 2ND 11:11
PROVIDERS: ADMIT Orthopaedic Surgery Sports Medicine; ATTEND Orthopaedic Surgery Sports Medicine
PROC: 0SRD0J9 Replacement of Left Knee Joint with Synthetic Substitute, Cemented, Open Approach (ICD-10-PCS; principal; 2020-08-13 07:30)
DX: M17.12 Unilateral primary osteoarthritis, left knee (principal); M06.9 Rheumatoid arthritis, unspecified; E78.5 Hyperlipidemia, unspecified; Z79.01 Long term (current) use of anticoagulants; Z79.899 Other long term (current) drug therapy; Z79.891 Long term (current) use of opiate analgesic; Z86.718 Personal history of other venous thrombosis and embolism; Z86.711 Personal history of pulmonary embolism; Z87.891 Personal history of nicotine dependence; Z20.828 Contact with and (suspected) exposure to other viral communicable diseases
CPT/HCPCS: 36415; 71046; 80048; 85014; 85018; 85025; 85610; 85730; 88304; 88305; 88311; 94010; 97110; 97116; 97139; 97161; 97530; J0690; J1100; J1170; J2250; J2405; J2704; J3010; J7120; U0002

== ENCOUNTER 2021-03-02 11:30 | Emergency (ER) | payer OTHER ==
--- OUTSIDE RECORDS SUMMARY | 2021-03-02 11:33 | XMS REPORT | Continuity of Care Document ---
:1935 Author Organization [facility] t Address [address] [place] [address] Care Team Providers Name Role Phone Elliot BELTRAN, B Primary Care Physician LUIZ Attending Clinician Unavailable Douglas BELTRAN, P. Attending Clinician Payers Payer Name Policy Type Policy Effective Date Expiration Date Sour ce Number AETNA MEDICAREAETNA [id number] 2013 [place] MEDICARE HMO/PPO 00:00:00 Method[facility] t [id number] -PresentHMO Problems This patient has no known problems. Allergies, Adverse Reactions, Alerts This patient has no known allergies or adverse reactions. Social History Social Habit Start Date Stop Date Quantity Comments Source Sex Assigned At [birth year] [facility] ethodist 00:00:00 00:00:00 Medications Ordered Filled Start Stop Current Ordering Indication Dosage Frequency Signature Comments Components Source Medication Medication Date Date Medication? Clinician (SIG) Name Name Valium Valium 2020-0 Yes Bennett [address] [facility] Crestor Crestor 2017-10 Yes Bennett [address] [facility]- [facility] Niacin Niacin Yes Bennett [address] [facility] with food [facility] Vitamin Vitamin Yes Bennett [address] [facility] [...] [facility] defined [facility] Iron Iron Yes Bennett [address] [facility] Methotrexat Methotrexat Yes Bennett not [facility] defined [facility] Hydroxychlo Hydroxychlo Yes Bennett not [facility] ro[facility]ine roquine Mota defined [facility] S[facility]ate [facility] Rosuvastati Rosuvastati Yes Bennett not [facility] n Calcium n Calcium [facility]ota defined [facility] Folic Acid Folic Acid Yes Bennett not [facility] defined [facility] Immunizations Ordered Immunization Filled Immunization Date Status Commen ts Source Name Name PFIZER COVID-19 MRNA 2020-12-14 Completed [place] [facility]00 [facility] PFIZER COVID-19 MRNA 2020-11-23 [place]pleted [place] [facility]:00 [facility] Procedures This patient has no known procedures. Plan of Care Planned Activity Planned Date Details Comments Source Future Scheduled 2021-05-17 INFLUENZA VACCINE [facility] [facility] 00:00:00 [code = INFLUENZA VACCINE] Future Scheduled 1986 SHINGLES VACCINES [place] [facility] 00:00:00 (#1) [code = SHINGLES VACCINES (#1)] Encounters Start End Encounter Admission Attending Care Care Encounter Source Date/Time Date/Time Type Type Clinicians Facility Department ID 2021-03-02 Outpatient [facility] [id number] [place] 09[place]:01 [facility] 2021-02-23 2021-02-23 Outpatient [facility] [id number] [facility] 2020-12-14 2020-12-14 Outpatient [facility] [id number] [address] [place] [address] 00:00:00 00:00:00 DARY [facility] 2020-11-26 2020-11-26 Outpatient [facility] [id number] [facility] 2020-11-24 2020-11-24 Out[facility] [id number] [facility] 2020-11-23 2020-11-23 Outpatient [facility] [id number] [address] [place] [address] 00:00:00 00:00:[address] 2020-09-29 2020-09-29 Outpatient [facility] [id number] [facility] 2020-09-19 2020-09-19 Out[facility] [id number] [facility] 2020-08-28 2020-08-28 Outpatient [facility] [id number] [facility] 2020-08-07 2020-08-07 Outpatient [facility] [id number] [facility] 2020-06-27 2020-06-27 Outpatient [facility] [id number] [facility] 2020-06-17 2020-06-17 [facility] [id number] [facility] 14:35[facility]00 14:35[facility]00 [facility] 2020-05-26 2020-05-26 [facility] [id number] [address] 08:21:00 08:21:00 [facility] 2020-05-06 2020-05-06 [facility] [id number] [address] 08:00:00 08:00:00 [facility] 2020-03-25 2020-03-25 [facility] [id number] 10:00:00 10:00:00 [facility] 2020-03-20 2020-03-20 [facility] [id number] [address] 08:00:00 08:00:00 [facility] 2020-03-11 2020-03-11 [facility] [id number] [address] 08:00:00 08:00:00 [facility] 2020-02-14 2020-02-14 [facility] [id number] 08:30:00 08:30:00 [facility] 2019-12-03 2019-12-03 [facility] [id number] 08:00:00 08:00:00 [facility] 2019-02-26 2019-02-26 [facility] [id number] [address] 08:00:00 08:00:00 [facility] 2019-01-15 2019-01-15 [facility] [id number] 08:00:00 08:00:00 [facility] 2018-12-04 2018-12-04 [facility] [id number] 09:30:00 09:30:00 [facility] 2018-11-08 2018-11-08 [facility] [id number] 11:13:00 11:13:00 [facility] 2018-11-07 2018-11-07 [facility] [id number] [address] 13:30:00 13:30:00 [facility] 2018-10-23 2018-10-23 [facility] [id number] [address] 14:00:00 14:00:00 [facility] 2018-10-23 2018-10-23 [facility] [id number] 09:00:00 09:00:00 [facility] 2018-10-16 2018-10-16 [facility] [id number] 12:03:00 12:03:00 [facility] 2018-10-16 2018-10-16 [facility] [id number] 09:02:00 09:02:00 [facility] 2018-10-06 2018-10-06 [facility] [id number] 09:00:00 09:00:00 [facility] 2018-10-02 2018-10-02 [facility] [id number] [facility] 11:00:00 11:00:00 [facility] 2018-07-26 2018-07-26 Outpatient Nicolas Cardoso [id number] [facility] 09:05:00 09:05:00 [facility] 2018-07-25 2018-07-25 Outpatient Nicolas Cardoso [id number] [facility] 08:30:00 08:30:00 t [facility] Results This patient has no known results.
[2021-03-02 13:05] LABS: Absolute Lymphocytes (CBC) 0.8 K/uL (0.7-4.9); Basophils % 1.1 % (0-1.3); Hematocrit 41.5 % (39.6-49.0); Lymphocytes % 14.7 % (15.3-44.8); MPV 8.6 fL (7.6-11.3); RBC Red Blood Cell Count 4.48 M/uL (4.33-5.43)
[2021-03-02] MEDS ORDERED: DERMABOND SKIN ADHESIVE TOP ONE ×3 (13:12→14:32)
--- NOTE | 2021-03-02 13:15 | RAD REPORT ---
EXAM DESCRIPTION: CT - [id number] - 03/02/2021 1:01 pm CLINICAL HISTORY: Trauma, head and neck injury. PAIN COMPARISON: No comparisons TECHNIQUE: Axial 5 mm thick images of the head were obtained. Axial 2 mm thick images of the cervical spine were obtained with sagittal and coronal reconstruction images generated and reviewed. All CT scans are performed using dose optimization technique as appropriate and may include automated exposure control or mA/KV adjustment according to patient size. FINDINGS: CT HEAD WITHOUT CONTRAST: No acute hemorrhage, hydrocephalus or extra-axial collection is identified.Mild generalized brain atr ophy is present with mild periventricular and deep white matter chronic microvascular ischemic change s.No areas of brain edema or midline shift. Mild vertebral atherosclerosis. The paranasal sinuses and mastoids are clear.Left periorbital soft tissue swelling over swelling french cent to the left zygoma seen.The calvarium is intact. CT CERVICAL SPINE WITHOUT CONTRAST: No fracture or subluxation.3 mm degenerative retrolisthesis of C4 on 5 noted.No prevertebral soft tis sues swelling is identified. IMPRESSION: No acute intracranial or cervical spine findings. Mild midcervical degenerative changes.
[2021-03-02 13:21] LABS: Potassium 4.2 mmol/L (3.5-5.1)
--- NOTE | 2021-03-02 14:32 | ER ---
Nurse's Notes [facility] Name: Nghia Potts Age: 85 yrs Sex: Male : 1935 Arrival Date: 03/02/2021 Time: 11:35 Bed 13 Private MD: Harrison Zarate B Diagnosis: Laceration without foreign body of scalp Presentation: 03/02 12:28 Acuity: CHARLEY 2 ca1 12:28 Chief complaint: Patient states: Tripped and fell at 1130 today. lac on L temporal ca1 area, skin tears on L elbow, upper arm.. bleeding controlled. Denies LOC. Pt on Xarelto. Coronavirus screen: Client denies travel out of the [place] in the last 14 days. At this time, the client does not indicate any symptoms associated with coronavirus-19. Ebola Screen: Patient negative for fever greater than or equal to 101.5 degrees Fahrenheit, and additional compatible Ebola Virus Disease symptoms Patient denies exposure to infectious person. Patient denies travel to an Ebola-affected area in the 21 days before illness onset. No symptoms or risks identified at this time. Initial Sepsis Screen: Does the patient meet any 2 criteria? No. Patient's initial sepsis screen is negative. Does the patient have a suspected source of infection? No. Patient's initial sepsis screen is negative. Risk Assessment: Do you want to hurt yourself or someone else? Patient reports no desire to harm self or others. Onset of symptoms was March 02, 2021. 12:28 Method Of Arrival: Ambulatory ca1 15:08 Care prior to arrival: None. Mechanism of Injury: Fall. Trauma event details: Injury tr6 occurred: at home. Injury occurred: March 02, 2021. Activity prior to arrival: None. Trauma Activation: Alert Physician: ED Physician; Name: Dr Narayanan; Notified At: 12:33; Arrived At: 12:37 Physician: General Surgeon; Name: ; Notified At: 12:33; Arrived At: Physician: Radiology; Name: Cristal Porras; Notified At: 12:33; Arrived At: Physician: Respiratory; Name: ; Notified At: 12:33; Arrived At: Physician: Lab; Name: ; Notified At: 12:33; Arrived At: Historical: - Allergies: 15:08 NKA; tr6 - PMHx: 12:32 DVT; Hyperlipidemia; PE; ca1 - PSHx: 12:32 right rotator cuff; hiatal hernia; ca1 - Immunization history:: Client reports receiving the 2nd dose of the Covid vaccine, Client reports receiving the 1st dose of the Covid vaccine, Last tetanus immunization: unknown, Flu vaccine is up to date. - Social history:: Smoking status: Patient denies any tobacco usage or history of. Patient/guardian denies using alcohol, street drugs, The patient lives with family. - Family history:: not pertinent. Screenin:05 Abuse screen: Denies threats or abuse. Denies injuries from another. Nutritional tr6 screening: No deficits noted. Tuberculosis screening: No symptoms or risk factors identified. Fall Risk Fall in past 12 months (25 points). Primary Survey: 15:06 NO uncontrolled hemorrhage observed. A: The patient is alert. Airway: patent. tr6 Breathing/Chest: Respiratory pattern: regular. Breathing/Chest: Respiratory effort: spontaneous, unlabored, Breath sounds: clear, Chest inspection: symmetrical rise and fall of the chest. Circulation: Cardiac rhythm: sinus rhythm. Disability Alert. Exposure/Environment:. 15:09 Reassessment Airway Airway Patent Oxygen No O2 Breathing/Chest Respiratory pattern tr6 Regular Respiratory effort Spontaneous Chest inspection Symmetrical Circulation Heart rhythm Sinus rhythm Disability Alert. Assessment: 15:02 General: Appears comfortable, Behavior is calm, cooperative, appropriate for age. Pain: tr6 Denies pain. Neuro: Level of Consciousness is awake, alert, obeys commands, Oriented to person, place, time, situation, Appropriate for age Clinical Psychiatrist are equal bilaterally Moves all extremities. Gait is steady, Speech is normal, Facial symmetry appears normal, Facial symmetry: tongue is midline, Intact. Cardiovascular: No deficits noted. Respiratory: No deficits noted. GI: No deficits noted. : No deficits noted. EENT: Lid(s) left eye lid swelling and purple. Derm:. Musculoskeletal: No deficits noted. Injury Description: Head injury sustained to face is open, bleeding, did not have loss of consciousness, was sustained 1-2 hours ago. pt s/p mechanical fall. +xarelto. slow dripping bleeding from left eye laceration. both eyes are open upon initial assessment. Upon discharge pts left eye is swollen shut. Laceration addressed by MD Narayanan. care reviewed with pt by MD. Pt verbalized understanding. Vital Signs: 12:28 Pulse 67; Resp 16 S; Temp 97; Pulse Ox 98% ; Weight 68.95 kg (R); Height 5 ft. 6 in. ca1 (167.64 cm) (R); Pain 2/10; 12:37 BP 123 / 71; ca1 12:28 Body Mass Index 24.53 (68.95 kg, 167.64 cm) ca1 Matt Coma Score: 15:06 Eye Response: spontaneous(4). Verbal Response: oriented(5). Motor Response: obeys tr6 commands(6). Total: 15. Trauma Score (Adult): 15:06 Eye Response: spontaneous(1); Verbal Response: oriented(1); Motor Response: obeys tr6 commands(2); Systolic BP: > 89 mm Hg(4); Respiratory Rate: 10 to 29 per min(4); Debary Score: 15; Trauma Score: 12 ED Course: 11:35 Patient arrived in ED. mr 11:35 Harrison Zarate MD is Private Physician. mr 12:28 Triage completed. ca1 12:32 Arm band placed on right wrist. ca1 12:33 Shady Narayanan MD is Attending Physician. ma2 12:46 Donna Barajas RN is Primary Nurse. tr6 13:02 CT Head C Spine In Process Unspecified. EDMS 15:05 Patient has correct armband on for positive identification. Fall risk band placed. tr6 Placed in gown. Bed in low position. Call light in reach. Side rails up X2. 15:08 Patient maintains SpO2 saturation greater than 95% on room air. tr6 15:10 Thermoregulation: warm blanket given to patient. 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 Exp: tr6 03/22/2022. Lot #: [id number]. } Route: IM; Site: right deltoid; Outcome: 14:32 Discharge ordered by . ma2 15:07 Discharged to home ambulatory, with family. tr6 15:07 Condition: stable 15:07 Discharge instructions given to patient, family, Instructed on discharge instructions, follow up and referral plans. medication usage, safety practices, wound care, Demonstrated understanding of instructions, follow-up care, medications, Prescriptions given X 1. 15:11 Patient left the ED. tr6 Signatures: Dispatcher [employer] EDSerina Saldana, RN RN sv Eulalia Braxton mr Juanjoarnaldo, MD DEVIN Caruso ma2 Krystal Castro RN RN ca1 Ramnanan, Tiffany, RN RN tr6 Corrections: (The following items were deleted from the chart) 12:32 12:28 Immunization history: Client reports receiving the 2nd dose of the Covid vaccine, ca1 Client reports receiving the 1st dose of the Covid vaccine, Last tetanus immunization: < 5 years ago Flu vaccine is up to date. ca1 15:08 12:32 Allergies: NKA; ca1 tr6
--- NOTE | 2021-03-02 14:32 | EDPHYS ---
Physician Documentation [facility] Name: Nghia Potts Age: 85 yrs Sex: Male : 1935 Arrival Date: 03/02/2021 Time: 11:35 Bed 13 Private MD: Harrison Zarate B ED Physician Shady Narayanan HPI: 03/02 14:30 This 85 yrs old Male presents to ER via Ambulatory with complaints of Fall ma2 Injury, Laceration To Scalp/Face. 14:30 Onset: The symptoms/episode began/occurred suddenly, 2 hour(s) ago. Associated ma2 injuries: The patient sustained injury to the head. Severity of symptoms: At their worst the symptoms were mild, in the emergency department the symptoms are unchanged. tripped and fell, hit his head . Historical: - Allergies: 15:08 NKA; tr6 - PMHx: 12:32 DVT; Hyperlipidemia; PE; ca1 - PSHx: 12:32 right rotator cuff; hiatal hernia; ca1 - Immunization history:: Client reports receiving the 2nd dose of the Covid vaccine, Client reports receiving the 1st dose of the Covid vaccine, Last tetanus immunization: unknown, Flu vaccine is up to date. - Social history:: Smoking status: Patient denies any tobacco usage or history of. Patient/guardian denies using alcohol, street drugs, The patient lives with family. - Family history:: not pertinent. ROS: 14:30 Constitutional: Negative for fever, chills, and weight loss. ma2 14:30 All other systems are negative. Exam: 14:30 Constitutional: This is a well developed, well nourished patient who is awake, alert, ma2 and in no acute distress. Head/Face: left forehead superifical abrasion, atraumatic. Eyes: Pupils equal round and reactive to light, extra-ocular motions intact. Lids and lashes normal. Conjunctiva and sclera are non-icteric and not injected. Cornea within normal limits. Periorbital areas with no swelling, redness, or edema. ENT: Nares patent. No nasal discharge, no septal abnormalities noted. Tympanic membranes are normal and external auditory canals are clear. Oropharynx with no redness, swelling, or masses, exudates, or evidence of obstruction, uvula midline. Mucous membranes moist. Neck: Trachea midline, no thyromegaly or masses palpated, and no cervical lymphadenopathy. Supple, full range of motion without nuchal rigidity, or vertebral point tenderness. No Meningismus. Chest/axilla: Normal chest wall appearance and motion. Nontender with no deformity. No lesions are appreciated. Cardiovascular: Regular rate and rhythm with a normal S1 and S2. No gallops, murmurs, or rubs. Normal PMI, no JVD. No pulse deficits. Respiratory: Lungs have equal breath sounds bilaterally, clear to auscultation and percussion. No rales, rhonchi or wheezes noted. No increased work of breathing, no retractions or nasal flaring. Abdomen/GI: Soft, non-tender, with normal bowel sounds. No distension or tympany. No guarding or rebound. No evidence of tenderness throughout. Skin: Warm, dry with normal turgor. Normal color with no rashes, no lesions, and no evidence of cellulitis. MS/ Extremity: Pulses equal, no cyanosis. Neurovascular intact. Full, normal range of motion. Neuro: Awake and alert, GCS 15, oriented to person, place, time, and situation. Cranial nerves II-XII grossly intact. Motor strength 5/5 in all extremities. Sensory grossly intact. Cerebellar exam normal. Normal gait. Vital Signs: 12:28 Pulse 67; Resp 16 S; Temp 97; Pulse Ox 98% ; Weight 68.95 kg (R); Height 5 ft. 6 in. ca1 (167.64 cm) (R); Pain 2/10; 12:37 BP 123 / 71; ca1 12:28 Body Mass Index 24.53 (68.95 kg, 167.64 cm) ca1 [place] Coma Score: 15:06 Eye Response: spontaneous(4). Verbal Response: oriented(5). Motor Response: obeys tr6 commands(6). Total: 15. Trauma Score (Adult): 15:06 Eye Response: spontaneous(1); Verbal Response: oriented(1); Motor Response: obeys tr6 commands(2); Systolic BP: > 89 mm Hg(4); Respiratory Rate: 10 to 29 per min(4); Matt Score: 15; Trauma Score: 12 MDM: 12:39 Patient medically screened. [facility] 14:30 Differential diagnosis: abrasion, contusion, sprain, strain. Data reviewed: vital ma2 signs, nurses notes. Counseling: I had a detailed discussion with the patient and/or guardian regarding: the historical points, exam findings, and any diagnostic results supporting the discharge/admit diagnosis, the presence of at least one elevated blood pressure reading (>120/80) during this emergency department visit, the need for outpatient follow up. Response to treatment: the patient's symptoms have markedly improved after treatment. 03/02 12:47 Order name: Basic Metabolic Panel tr6 03/02 12:47 Order name: CBC with Diff; Complete Time: 13:29 tr6 03/02 12:44 Order name: CT Head C Spine; Complete Time: 13:29 nh2 03/02 12:47 Order name: Ptt, Activated; Complete Time: 14:30 tr6 03/02 12:47 Order name: Basic Metabolic Panel; Complete Time: 13:29 EDOH 03/02 12:44 Order name: Dermabond; Complete Time: 13:15 [facility] 03/02 12:47 Order name: Labs collected and sent; Complete Time: 12:47 tr6 Administered Medications: 14:45 Drug: Tetanus-Diphtheria Toxoid Adult 0.5 ml {Canvas Baster Jumpbasting: [employer]. Exp: tr6 03/22/2022. Lot #: [id number]. } Route: IM; Site: right deltoid; Disposition: 03/02/21 14:32 Discharged to Home. Impression: Laceration without foreign body of scalp. - Condition is Stable. - Discharge Instructions: Laceration Care, Adult, Head Injury, Adult, [id number], VIS, Tetanus, Diphtheria, and Pertussis (Tdap) - CDC. - Prescriptions for Diclofenac Sodium 75 mg Oral Tablet Sustained Release - take 1 tablet by ORAL route 2 times per day; 30 tablet. - Medication Reconciliation Form, Thank You Letter, Antibiotic Education, Prescription Opioid Use form. - Follow up: Private Physician; When: Tomorrow; Reason: Continuance of care. Signatures: Dispatcher [employer] EDMS Shady Narayanan MD MD ma2 Krystal Castro RN RN ca1 Donna Barajas RN RN tr6 Corrections: (The following items were deleted from the chart) 12:32 12:28 Immunization history: Client reports receiving the 2nd dose of the Covid vaccine, ca1 Client reports receiving the 1st dose of the Covid vaccine, Last tetanus immunization: < 5 years ago Flu vaccine is up to date. ca1 15:08 12:32 Allergies: NKA; ca1 tr6 15:11 14:32 03/02/2021 14:32 Discharged to Home. Impression: Laceration without foreign body tr6 of scalp. Condition is Stable. Forms are Medication Reconciliation Form, Thank You Letter, Antibiotic Education, Prescription Opioid Use. Follow up: Private Physician; When: Tomorrow; Reason: Continuance of care. ma2
[2021-03-02] MEDS ORDERED: TETANUS & DIPHTHERIA TOX,ADULT 0.5 ML VIAL ONE (14:59)
[2021-03-02 16:00] VITALS: TEMP 97; O2SAT 98
[2021-03-02 16:01] VITALS: BP 123/71
--- NOTE | 2021-03-03 11:41 | EKG ---
Test Date: 2021-03-02 Test Time: 12:42:46 Range Rider: AVELINO MEASUREMENT RESULTS: Intervals: Rate: 64 HI: 272 QRSD: 96 QT: 424 QTc: 437 [place]: P: 1 HI: 272 QRS: -34 T: -3 INTERPRETIVE STATEMENTS: Sinus rhythm with 1st degree AV block Left axis deviation Moderate voltage criteria for LVH, may be normal variant Abnormal ECG Compared to ECG 10/11/2018 13:34:49 Left-axis deviation now present Electronically Signed On 03-03-21 11:39:33 CDT by Stanley Marroquin
== END 2021-03-02 15:11 | disposition home or self-care (01) ==
LOC: ER 11:30
DX: S01.01XA Laceration without foreign body of scalp, initial encounter (principal); Z23 Encounter for immunization; E78.5 Hyperlipidemia, unspecified; Z86.711 Personal history of pulmonary embolism; Z86.718 Personal history of other venous thrombosis and embolism; W01.0XXA Fall on same level from slipping, tripping and stumbling without subsequent striking against object, initial encounter
CPT/HCPCS: 36415; 70450; 72125; 80048; 85025; 85730; 90471; 90714; 93005; 99284; G0390